=== PATIENT | female | born 1950 | race Caucasian/White ===

== ENCOUNTER 2017-01-14 13:37 | Emergency (ER) | payer MEDICARE, OTHER ==
[2017-01-14 15:40] LABS: BASOPHIL 0.2 % (0-2); EOSINOPHIL 0.5 % (0-7); HCT 38.7 % (37.0-47.0); LYMPHOCYTE 6.1 % (15-48); MCV 90.2 fL (78.0-100.0); MONOCYTE 3.6 % (0-12); MPV 9.5 fL (6.0-9.5); NEUTROPHIL 89.6 % (41-80); PLT 156 K/uL (150-400); RBC 4.29 M/uL (4.20-5.40); RDW 14.9 % (11.5-14.0)
[2017-01-14 15:42] LABS: WBC 10.1 K/uL (4.0-10.5)
[2017-01-14 15:54] LABS: CREATININE 0.9 mg/dL (0.5-1.0); POTASSIUM 5.4 mmol/L (3.5-5.1)
== END 2017-01-14 17:05 | disposition home or self-care (01) ==
LOC: FER 13:37
PROVIDERS: Emergency Medicine
DX: J44.9 Chronic obstructive pulmonary disease, unspecified (principal); I10 Essential (primary) hypertension; E11.9 Type 2 diabetes mellitus without complications; F32.9 Major depressive disorder, single episode, unspecified; F41.9 Anxiety disorder, unspecified; Z79.899 Other long term (current) drug therapy; Z79.4 Long term (current) use of insulin
CPT/HCPCS: 36415; 71020; 80048; 85025; 93005